=== PATIENT | male | born 1935 | race Caucasian/White ===

== ENCOUNTER → 2017-12-24 08:05 | Outpatient (CLI) | payer MEDICARE, BC, SELFPAY ==
[2017-12-24 08:53] LABS: Hemoglobin A1C% w Est Avg Glu 5.6 % (4.0-6.0)
[2017-12-24 09:45] LABS: Alanine Aminotransferase 26 IU/L (21-72); Aspartate Aminotransferase 22 IU/L (17-59); BUN Creatinine Ratio 19.2 (6-22); Blood Urea Nitrogen 25 mg/dL (9-20); Calcium 9.9 mg/dL (8.4-10.2); Carbon Dioxide 28 mmol/L (22-32); Chloride 105 mmol/L (98-107); Cholesterol 166 mg/dL (140-199); Estimated Glomerular Filt Rate 52.9 mL/min (>60); Glucose 124 mg/dL (80-110); HDL Cholesterol 51 mg/dL (40-60); HEMOLYSIS < 15 (0-50); LDL Cholesterol Calculated 97 mg/dL (<100); Potassium 4.9 mmol/L (3.4-5.1); Sodium 142 mmol/L (137-145); Triglycerides 90 mg/dL (35-150)
== END ==
PROVIDERS: PCP Internal Medicine; Visit Provider Internal Medicine
DX: I10 Essential (primary) hypertension (principal); E11.40 Type 2 diabetes mellitus with diabetic neuropathy, unspecified; E78.5 Hyperlipidemia, unspecified
CPT/HCPCS: 36415; 80048; 80061; 83036; 84450; 84460

== ENCOUNTER → 2018-07-23 09:48 | Outpatient (CLI) | payer MEDICARE, BC, SELFPAY ==
[2018-07-23 11:13] LABS: Hemoglobin A1C% w Est Avg Glu 5.7 % (4.0-6.0)
[2018-07-23 11:18] LABS: Alanine Aminotransferase 31 IU/L (21-72); Aspartate Aminotransferase 24 IU/L (17-59); Cholesterol 133 mg/dL (140-199); HDL Cholesterol 42 mg/dL (40-60); LDL Cholesterol Calculated 74 mg/dL (<100); Triglycerides 84 mg/dL (35-150)
[2018-07-23 12:39] LABS: BUN Creatinine Ratio 20.9 (6-22); Blood Urea Nitrogen 23 mg/dL (9-20); Calcium 9.5 mg/dL (8.4-10.2); Carbon Dioxide 21 mmol/L (22-32); Chloride 106 mmol/L (98-107); Estimated Glomerular Filt Rate > 60.0 mL/min (>60); Glucose 124 mg/dL (80-110); HEMOLYSIS < 15 (0-50); Potassium 4.2 mmol/L (3.4-5.1); Sodium 140 mmol/L (137-145)
[2018-07-23 15:27] LABS: Creatinine Urine Random 184.1 mg/dL
[2018-07-23 15:31] LABS: Microalbumi Creatinin Ratio Ur 6.5 ug/mg CR (<30); Microalbumin Urine Random 1.2 mg/dL (0-1.6)
[2018-07-24 16:13] LABS: PSA, Total < 0.1 ng/mL (< 4.1)
== END ==
PROVIDERS: PCP Internal Medicine; Visit Provider Internal Medicine
DX: E11.9 Type 2 diabetes mellitus without complications (principal); I10 Essential (primary) hypertension; E78.5 Hyperlipidemia, unspecified; Z85.46 Personal history of malignant neoplasm of prostate
CPT/HCPCS: 36415; 80048; 80061; 82043; 82570; 83036; 84153; 84154; 84450; 84460

== ENCOUNTER → 2019-04-12 09:45 | Outpatient (CLI) | payer MEDICARE, BC, SELFPAY ==
[2019-04-12 11:17] LABS: Alanine Aminotransferase 25 IU/L (<50); Albumin 4.5 g/dL (3.5-5.0); Albumin Globulin Ratio 1.7 (1.0-2.8); Alkaline Phosphatase 61 U/L (38-126); Aspartate Aminotransferase 26 IU/L (17-59); BUN Creatinine Ratio 18.3 (6-22); Bilirubin Total 0.7 mg/dL (0.2-1.3); Blood Urea Nitrogen 22 mg/dL (9-20); Calcium 9.4 mg/dL (8.4-10.2); Carbon Dioxide 24 mmol/L (22-32); Chloride 107 mmol/L (98-107); Cholesterol 134 mg/dL (140-199); Estimated Glomerular Filt Rate 57.8 mL/min (>60); Globulin 2.7 g/dL (1.7-4.1); Glucose 132 mg/dL (80-110); HDL Cholesterol 44 mg/dL (40-60); HEMOLYSIS < 15 (0-50); LDL Cholesterol Calculated 71 mg/dL (<100); Potassium 4.2 mmol/L (3.4-5.1); Sodium 142 mmol/L (137-145); Total Protein 7.2 g/dL (6.3-8.2); Triglycerides 97 mg/dL (35-150)
== END ==
PROVIDERS: PCP Internal Medicine; Visit Provider Internal Medicine
DX: I10 Essential (primary) hypertension (principal); E78.5 Hyperlipidemia, unspecified
CPT/HCPCS: 36415; 80053; 80061

== ENCOUNTER → 2020-02-28 13:40 | Outpatient (CLI) | payer MEDICARE, BC, SELFPAY ==
--- NOTE | 2020-02-28 | DI.RAD.S_ITS ---
PROCEDURE: XR HAND LT MIN 3V INDICATIONS: LEFT HAND PAIN AFTER FALL TECHNIQUE: 3 views of the hand(s) acquired. COMPARISON: None. FINDINGS: Bones: No fractures or dislocations. Carpal bones are normally aligned. No suspicious bony lesions. Mild degenerative osteoarthritis. Soft tissues: No suspicious soft tissue calcifications. IMPRESSION: Mild degenerative osteoarthritic joint space narrowing, best seen at the base of the 1st metacarpal as it articulates against the trapezium but there is no acute trauma found. Dictated by: Geronimo Bunn M.D. on 02/28/2020 at 14:43 Approved by: Geronimo Bunn M.D. on 02/28/2020 at 14:44
== END ==
PROVIDERS: PCP Student in an Organized Health Care Education/Training Program; Referring Provider Student in an Organized Health Care Education/Training Program; Visit Provider Student in an Organized Health Care Education/Training Program
DX: M79.642 Pain in left hand (principal); M19.042 Primary osteoarthritis, left hand
CPT/HCPCS: 73130

== ENCOUNTER → 2020-08-30 11:50 | Outpatient (CLI) | payer MEDICARE, BC, SELFPAY ==
--- NOTE | 2020-08-30 11:56 | DI.RAD.S_ITS ---
PROCEDURE: XR CHEST 2V INDICATIONS: DYSPNEA TECHNIQUE: 2 views of the chest were acquired. COMPARISON: [facility], CHEST 1 VIEW, 03/25/2017, 12:19. [facility], CHEST 2 VIEW, 04/24/2009, 10:49. FINDINGS: Surgical changes and devices: None. Lungs and pleura: Lungs are mildly abnormal with a mild interstitial prominence, likely unchanged considering slight differences in technique from the comparison plain films. No pleural effusions or pneumothorax. Mediastinum: Mediastinal contours are normal. Heart size is normal. Bones and chest wall: No suspicious bony abnormalities. Soft tissues appear unremarkable. IMPRESSION: Mild chronic interstitial prominence, no definite acute disease. The film technique is significantly emergency department manager, and the interstitial prominence appears appreciably more easily visualized. This is considered most likely a artifact of technique but if unusual symptoms and progression of symptoms develops than high-resolution noncontrast CT scanning of the lung parenchyma may become necessary. Dictated by: Geronimo Bunn M.D. on 08/30/2020 at 13:09 Approved by: Geronimo Bunn M.D. on 08/30/2020 at 13:11
== END ==
PROVIDERS: PCP Student in an Organized Health Care Education/Training Program; Referring Provider Student in an Organized Health Care Education/Training Program; Visit Provider Student in an Organized Health Care Education/Training Program
DX: R06.00 Dyspnea, unspecified (principal)
CPT/HCPCS: 71046

== ENCOUNTER → 2020-09-05 14:14 | Outpatient (ROUT) | payer MEDICARE, BC, SELFPAY ==
[2020-09-05 14:35] LABS: D Dimer 250 ng/mL (<230)
== END ==
PROVIDERS: PCP Student in an Organized Health Care Education/Training Program; Visit Provider Student in an Organized Health Care Education/Training Program
DX: R06.00 Dyspnea, unspecified (principal)
CPT/HCPCS: 85379

== ENCOUNTER → 2020-09-06 12:34 | Outpatient (CLI) | payer MEDICARE, BC, SELFPAY ==
--- NOTE | 2020-09-06 | DI.CT.S_ITS ---
PROCEDURE: CT ANGIO CHEST PE PROTOCOL INDICATIONS: Dyspnea, unspecified TECHNIQUE: After the administration of intravenous contrast, 2 mm thick sections acquired from the pulmonary apices to the posterior costophrenic angles. 3-dimensional maximum intensity projection (MIP) coronal and sagittal reformats were then acquired through the thorax. For radiation dose reduction, the following was used: automated exposure control, adjustment of mA and/or kV according to patient size. COMPARISON: None. FINDINGS: Lungs: Scattered subsegmental atelectasis and/or scarring. No focal consolidation. Diffuse bronchiectasis. Subpleural reticular opacities, although nodular appearing focus seen in the left upper lobe on image 130/5 is technically indeterminate and cannot exclude early malignant or metastatic process. This measures approximately 1.5 x 0.6 cm . Mild calcified pleural plaques Pleura: No pleural effusion or pneumothorax. Heart: Heart size is normal. No pericardial effusion. Chest nodes: Enlarged right hilar lymph node seen on image 71/4, 2.0 x 1.8 cm. Shotty right paratracheal and subcarinal lymph nodes also noted. Thyroid gland: Negative Aorta: Normal. Pulmonary arteries: Normal. No intraluminal filling defects. Esophagus: Small hiatal hernia. Upper abdomen: No significant findings. Bones: Spondylitic changes and facet arthropathy. IMPRESSION: No evidence of pulmonary embolism. No aortic dissection identified. Ill-defined nodular opacity within the left upper lobe. Recommend follow-up with noncontrast CT chest in 3 months as early metastatic or malignant process cannot be excluded. Scant calcified pleural plaques raising possibility of suppresses related pleural disease. Right hilar lymphadenopathy, technically nonspecific finding recommend clinical correlation. Diffuse scarring and interstitial disease, including widespread bronchiectasis. Additional chronic/incidental findings as above. Dictated by: Rahul Moreno M.D. on 09/06/2020 at 13:57 Approved by: Rahul Moreno M.D. on 09/06/2020 at 14:03
== END ==
PROVIDERS: PCP Student in an Organized Health Care Education/Training Program; Referring Provider Student in an Organized Health Care Education/Training Program; Visit Provider Student in an Organized Health Care Education/Training Program
DX: R06.00 Dyspnea, unspecified (principal)
CPT/HCPCS: 71275; Q9967

== ENCOUNTER → 2020-09-26 09:01 | Outpatient (CLI) | payer MEDICARE, BC, SELFPAY ==
--- NOTE | 2020-09-26 09:03 | DI.ECHO.S_ITS ---
[place] [facility]---------+ [facility] +---------+ : : [address] : : : : [id number] : : : : Phone: [phone] Echocardiogram Report + + :Name: FEMI REED Study Date: 09/26/2020 Height: 69 in : :[facility] ReadingLocation: Weight: 200 lb : : Gender: Male BSA: 2.1 m2 : :: 1935 Age: 85 yrs BP: 155/89 mmHg: :Reason For Study: DYSPNEA : :Ordering Physician: [place], : :RADHA Performed By: Samantha Houser : :Referring: RADHA GARIBAY : + + Interpretation Summary 1) Normal left ventricular thickness, size, and systolic function (EF 55-60%). 2) There are no obvious focal wall motion abnormalities noted but poor endocardial definition reduces the sensitivity for the detection of such. 3) Normal right ventricular size and function. 4) No significant valvular abnormalities. 5) The right ventricular systolic pressure is estimated to be at least 26 mmHg based on an estimated right atrial pressure of 8 mm Hg. 6) Hypertension present during the study (BP 15/89mmHg). 7) Compared to the Echo done 03/26/2017, no significant change in cardiac structure. Procedure: A two-dimensional transthoracic echocardiogram with color flow and Doppler was performed. The study quality was technically adequate. Comparison is made with the echocardiogram of 03/26/2017. The patient was in sinus rhythm with heart rates between 73-89 bpm during the exam. Left Ventricle: The left ventricle is normal in size and wall thickness. The ejection fraction is estimated to be 55-60%. There are no obvious focal wall motion abnormalities noted but poor endocardial definition reduces the sensitivity for the detection of such. Right Ventricle: The right ventricle is normal in size and function. Atria: Both atria are normal in size. There is no Doppler evidence for an interatrial shunt. Mitral Valve: The mitral valve is normal in structure and function. There is no mitral regurgitation noted. Aortic Valve: The aortic valve is slightly calcified. The aortic valve opens well. There is discrete nodular thickening of the non- coronary cusp. There is no aortic valve stenosis. No aortic regurgitation is present. Tricuspid Valve: The tricuspid valve is normal in structure and function. The right ventricular systolic pressure is estimated to be at least 26 mmHg based on an estimated right atrial pressure of 8 mm Hg. There is mild tricuspid regurgitation. Pulmonic Valve: The pulmonic valve leaflets are thin and pliable; valve motion is normal. There is no pulmonic valvular regurgitation. Great Vessels: The aortic root is normal size. The ascending aorta is at the upper limits of normal in size. The IVC is of normal diameter and collapses less than 50% with a sniff. This suggests a right atrial pressure of 8 mm Hg. Pericardium/ Pleura There is no pericardial effusion. There is no pleural effusion. MMode/2D Measurements & Calculations LVIDd: 4.2 cm LVOT diam: 2.2 cm LVIDs: 3.0 cm asc Aorta Diam: 3.9 cm FS: 28.7 % IVSd: 1.0 cm LVPWd: 0.83 cm LV palmer. diameter/BSA (cm/m^2): 2.1 LV sys. diameter/BSA (cm/m^2): 1.5 LA A2 area: 18.1 cm2 RA long axis: 4.8 cm LA A4 area: 13.4 cm2 RA area: 13.7 cm2 LA length (vol): 5.2 cm RA vol: 33.5 ml LA vol: 39.9 ml RA : 16.2 ml/m2 LA vol index: 19.3 ml/m2 IVC diam: 1.4 cm RVD1 (basal): 3.6 cm TAPSE: 1.9 cm Doppler Measurements & Calculations Ao V2 max: 143.9 cm/sec LVOT Max Abisai: 79.7 cm/sec Ao V2 mean: 97.4 cm/sec LV V1 max P.5 mmHg Ao max P.3 mmHg LV V1 VTI: 16.1 cm Ao mean P.5 mmHg DENZEL(I,D): 2.2 cm2 Ao V2 VTI: 28.9 cm DENZEL(V,D): 2.2 cm2 sev ratio: 0.56 DENZEL indexed to BSA (cm^2/m^2): 1.1 MV E max abisai: 40.0 cm/sec TR max abisai: 213.2 cm/sec MV A max abisai: 82.3 cm/sec TR max P.2 mmHg MV E/A: 0.49 PA V2 max: 80.3 cm/sec Med Peak E' Abisai: 4.7 cm/sec PA V2 mean: 51.1 cm/sec E/E' med: 8.5 PA mean P.3 mmHg Lat Peak E' Abisai: 6.0 cm/sec PA pr(Accel): 39.6 mmHg E/E' lat: 6.7 E/e' average: 7.6 MV dec time: 0.32 sec SV(OT): 63.6 ml Reading Physician:01:57 PM
== END ==
PROVIDERS: PCP Student in an Organized Health Care Education/Training Program; Referring Provider Student in an Organized Health Care Education/Training Program; Visit Provider Student in an Organized Health Care Education/Training Program
DX: I07.1 Rheumatic tricuspid insufficiency (principal); R06.00 Dyspnea, unspecified
CPT/HCPCS: 93306

== ENCOUNTER → 2020-11-19 10:16 | Outpatient (CLI) | payer MEDICARE, BC, SELFPAY ==
[2020-11-19 14:00] LABS: C-Reactive Protein Quant < 0.5 mg/dL (<1.0)
[2020-11-19 14:01] LABS: Erythrocyte Sedimentation Rate 10 MM/HR (0-15)
[2020-11-19 14:02] LABS: Rheumatoid Factor < 8.6 IU/mL (<12.0)
[2020-11-20 03:48] LABS: Complement C3 124 mg/dL (82-167)
[2020-11-21 16:44] LABS: Cytoplasmic C-ANCA <1:20 titer (Neg:<1:20); Perinuclear P-ANCA <1:20 titer (Neg:<1:20)
[2020-11-22 04:54] LABS: Complement Total CH50 > 60 U/mL (>41)
== END ==
PROVIDERS: PCP Student in an Organized Health Care Education/Training Program; Referring Provider Internal Medicine Critical Care Medicine; Visit Provider Internal Medicine Critical Care Medicine
DX: J84.9 Interstitial pulmonary disease, unspecified (principal)
CPT/HCPCS: 36415; 85651; 86140; 86160; 86162; 86256; 86430

== ENCOUNTER → 2020-12-07 09:55 | Outpatient (CLI) | payer MEDICARE, BC, SELFPAY ==
--- NOTE | 2020-12-07 | DI.CT.S_ITS ---
PROCEDURE: CT CHEST WO CON INDICATIONS: Other nonspecific abnormal finding of lung field TECHNIQUE: Noncontrast 2.0-2.5 mm thick sections acquired from the pulmonary apices to the posterior costophrenic angles. 7 mm thick axial MIP and 5 mm coronal and sagittal reformats were then acquired. A low radiation dose technique was utilized. COMPARISON: [facility], CT, CT ANGIO CHEST PE PROTOCOL, 09/06/2020, 12:48. FINDINGS: Image quality: Diagnostic, given the low radiation dose technique. Lungs and pleura: Chronic lung disease is present, with a predominantly peripheral mild pulmonary fibrotic pattern, and a lesser degree of alveolar prominence than on the comparison study 09/06/20. At the left upper lobe an area of subsolid airspace disease has improved, with mild residual scarring. This is currently best seen on series 3, image 111, and had been identified on the comparison study from 09/06/28 on series 5, image 130. Mediastinum: Heart size is normal. No pericardial effusion. No mediastinal adenopathy by size criteria. Thoracic aorta and central pulmonary arteries are normal in size. Esophagus is normal in caliber. No hiatal hernia. Bones and chest wall: No suspicious bony lesions. No vertebral body compression fractures. No axillary or supraclavicular adenopathy by size criteria. Thyroid gland appears normal where well seen. . Abdomen: Visualized upper abdomen solid organs and bowel loops appear normal in the absence of contrast. 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 An area of focally more prominent airspace disease have been present within the left upper lobe, subsolid, and improving on the current study with mild residual scarring. This presumably was secondary to an inflammatory process in area at that time Dictated by: Geronimo Bunn M.D. on 12/07/2020 at 14:10 Approved by: Geronimo Bunn M.D. on 12/07/2020 at 14:29
== END ==
PROVIDERS: PCP Student in an Organized Health Care Education/Training Program; Referring Provider Student in an Organized Health Care Education/Training Program; Visit Provider Student in an Organized Health Care Education/Training Program
DX: R91.8 Other nonspecific abnormal finding of lung field (principal); J98.4 Other disorders of lung; J84.10 Pulmonary fibrosis, unspecified
CPT/HCPCS: 71250

== ENCOUNTER → 2021-01-17 12:08 | Outpatient (CLI) | payer MEDICARE, BC, SELFPAY ==
[2021-01-17 13:19] LABS: BUN Creatinine Ratio 18.1 (6-22); Blood Urea Nitrogen 21 mg/dL (9-20); Calcium 9.9 mg/dL (8.4-10.2); Carbon Dioxide 24 mmol/L (22-32); Chloride 103 mmol/L (98-107); Estimated Glomerular Filt Rate 59.8 mL/min (>60); Glucose 348 mg/dL (80-110); HEMOLYSIS < 15 (0-50); Potassium 4.7 mmol/L (3.4-5.1); Sodium 136 mmol/L (137-145)
== END ==
PROVIDERS: PCP Student in an Organized Health Care Education/Training Program; Referring Provider Student in an Organized Health Care Education/Training Program; Visit Provider Student in an Organized Health Care Education/Training Program
DX: I10 Essential (primary) hypertension (principal)
CPT/HCPCS: 36415; 80048

== ENCOUNTER → 2021-01-28 14:09 | Outpatient (CLI) | payer MEDICARE, BC, SELFPAY ==
[2021-01-28 15:24] LABS: Hemoglobin A1C% w Est Avg Glu 8.5 % (4.0-6.0)
== END ==
PROVIDERS: PCP Student in an Organized Health Care Education/Training Program; Referring Provider Student in an Organized Health Care Education/Training Program; Visit Provider Student in an Organized Health Care Education/Training Program
DX: E11.9 Type 2 diabetes mellitus without complications (principal)
CPT/HCPCS: 36415; 83036

== ENCOUNTER → 2021-06-07 11:01 | Outpatient (CLI) | payer MEDICARE, BC, SELFPAY ==
[2021-06-07 12:38] LABS: Hemoglobin A1C% w Est Avg Glu 9.1 % (4.0-6.0)
== END ==
PROVIDERS: PCP Student in an Organized Health Care Education/Training Program; Referring Provider Student in an Organized Health Care Education/Training Program; Visit Provider Student in an Organized Health Care Education/Training Program
DX: E11.9 Type 2 diabetes mellitus without complications (principal)
CPT/HCPCS: 36415; 83036

== ENCOUNTER → 2021-08-12 10:11 | Outpatient (CLI) | payer MEDICARE, BC, SELFPAY ==
[2021-08-12 12:31] LABS: COVID-19 CEPHEID PCR (VTM/NP) Negative (Negative)
== END ==
PROVIDERS: PCP Student in an Organized Health Care Education/Training Program; Visit Provider Family Medicine Sleep Medicine
DX: Z20.822 Contact with and (suspected) exposure to COVID-19 (principal)
CPT/HCPCS: C9803; U0003; U0005

== ENCOUNTER → 2021-09-05 11:17 | Outpatient (CLI) | payer MEDICARE, BC, SELFPAY ==
[2021-09-05 12:16] LABS: Add Manual Diff / Slide Review NO; Basophils Absolute Auto 0 /uL (0-100); Basophils Percent Auto 0.5 % (0-2); Eosinophils Absolute Auto 100 /uL (0-450); Hematocrit 39.7 % (41-53); Hemoglobin 13.6 g/dL (13.5-17.5); Lymphocytes Absolute Auto 2000 /uL (1100-4500); Lymphocytes Percent Auto 28.7 % (25-40); Mean Corpuscular HGB Conc 34.2 % (30-36); Mean Corpuscular Hemoglobin 32.1 PG (26-34); Mean Corpuscular Volume 93.9 fL (80-100); Monocytes Absolute Auto 500 /uL (0-900); Monocytes Percent Auto 7.8 % (3-14); Neutrophils Absolute Auto 4200 /uL (1500-7000); Platelet Count 172 X10^3/uL (150-400); Red Blood Cell Count 4.23 X10^6/uL (4.5-5.9); Red Cell Distribution Width 13.1 % (11.6-14.8); White Blood Cell Count 6.8 X10^3/uL (4.5-11.0)
[2021-09-05 12:42] LABS: Alanine Aminotransferase 27 IU/L (<50); Albumin 4.5 g/dL (3.5-5.0); Albumin Globulin Ratio 1.7 (1.0-2.8); Alkaline Phosphatase 66 U/L (38-126); Aspartate Aminotransferase 24 IU/L (17-59); BUN Creatinine Ratio 16.8 (6-22); Bilirubin Total 0.7 mg/dL (0.2-1.3); Blood Urea Nitrogen 19 mg/dL (9-20); Calcium 9.6 mg/dL (8.4-10.2); Carbon Dioxide 24 mmol/L (22-32); Chloride 105 mmol/L (98-107); Cholesterol 174 mg/dL (140-199); Estimated Glomerular Filt Rate > 60 mL/min (>60); Globulin 2.7 g/dL (1.7-4.1); Glucose 298 mg/dL (80-110); HDL Cholesterol 45 mg/dL (40-60); HEMOLYSIS < 15 (0-50); Hemoglobin A1C% w Est Avg Glu 9.8 % (4.0-6.0); LDL Cholesterol Calculated 96 mg/dL (<100); Potassium 4.5 mmol/L (3.4-5.1); Sodium 138 mmol/L (137-145); Total Protein 7.2 g/dL (6.3-8.2); Triglycerides 165 mg/dL (35-150)
[2021-09-05 13:09] LABS: Thyroid Stimulating Hormone 1.88 uIU/mL (0.47-4.68)
[2021-09-05 13:29] LABS: Prostate Specific Antigen Scrn < 0.064 ng/mL (0.1-4.0)
== END ==
PROVIDERS: PCP Family Medicine; Referring Provider Student in an Organized Health Care Education/Training Program; Visit Provider Student in an Organized Health Care Education/Training Program
DX: E11.9 Type 2 diabetes mellitus without complications (principal); E78.5 Hyperlipidemia, unspecified; I10 Essential (primary) hypertension; Z12.5 Encounter for screening for malignant neoplasm of prostate
CPT/HCPCS: 36415; 80053; 80061; 83036; 84443; 85025; G0103

== ENCOUNTER → 2021-11-15 14:51 | Outpatient (CLI) | payer MEDICARE, BC, SELFPAY ==
[2021-11-15 16:17] LABS: Creatinine Urine Random 207.1 mg/dL
[2021-11-15 16:21] LABS: Microalbumi Creatinin Ratio Ur 21.2 ug/mg CR (<30); Microalbumin Urine Random 4.4 mg/dL (0-1.6)
[2021-11-15 23:11] LABS: Hemoglobin A1C% w Est Avg Glu 9.1 % (4.0-6.0)
== END ==
PROVIDERS: PCP Family Medicine; Referring Provider Internal Medicine; Visit Provider Internal Medicine
DX: E11.9 Type 2 diabetes mellitus without complications (principal)
CPT/HCPCS: 36415; 82043; 82570; 83036

== ENCOUNTER 2022-05-16 20:28 | Inpatient (IN) | payer MEDICARE, BC, SELFPAY ==
[2022-05-16] VITALS (11 sets, daily range): BP systolic 160–184; BP diastolic 78–86; PULSE 90–102; RESP 22–34; TEMP 37.7–37.9; O2SAT 94–98
--- NOTE | 2022-05-16 20:49 | DI.RAD.S_ITS ---
PROCEDURE: XR CHEST 1V INDICATIONS: Eval for pneumonia TECHNIQUE: One view of the chest was acquired. COMPARISON: [facility], CR, XR CHEST 2V, 08/30/2020, 11:54. FINDINGS: Surgical changes and devices: None. Lungs and pleura: There are new confluent left basilar opacities. No pleural effusions or pneumothorax. Mediastinum: Mediastinal contours appear normal. Heart size is normal. Bones and chest wall: No suspicious bony lesions. Overlying soft tissues appear unremarkable. IMPRESSION: 1. New confluent left basilar opacities suspicious for consolidation secondary to pneumonia given clinical history. Dictated by: Juventino Hernandes M.D. on 05/16/2022 at 21:58 Approved by: Juventino Hernandes M.D. on 05/16/2022 at 22:01
--- NOTE | 2022-05-16 21:15 | ED_ITS ---
HPI - General Adult General Chief complaint: Fever Stated complaint: Multiple falls Time Seen by Provider: 05/16/22 20:34 Source: patient, family and EMS Mode of arrival: EMS Limitations: no limitations History of Present Illness HPI narrative: Patient is a 86-year-old male who comes to the emergency department today for 2 separate episodes of becoming lightheaded. He states that 1 of those episodes had several occasions when he was trying to urinate just after he urinated where he became very lightheaded. The 2nd episode only had 1 event of this. He denied chest pain or shortness of breath or dizziness prior to it. He is no chest pain. No shortness of breath. No abdominal pain. He thinks that it he is having some difficulty going to the bathroom and had 1 episode of urinary incontinence but that was because he could not make it to the bathroom however no specific dysuria. No change in bowel habits. No rashes. Denies any fevers. States he is eating and drinking without much issue. He is having chills. Was febrile by EMS prior to arrival. Related Data Home Medications Medication Instructions Recorded Confirmed metformin 500 mg tablet,extended 500 mg PO BID ##0 03/25/17 release 24 hr (Glucophage XR) Previous Rx's Medication Instructions Recorded aspirin 81 mg tablet,delayed 81 mg PO QDAY #30 tabs 03/26/17 release atorvastatin 20 mg tablet (Lipitor) 40 mg PO HS #30 tabs 03/26/17 lisinopril 10 mg tablet 10 mg PO QDAY #30 tabs 03/26/17 Allergies Allergy/AdvReac Type Severity Reaction Status Date / Time No Known Drug Allergies Allergy Verified 05/16/22 20:49 Review of Systems Review of Systems ROS Unobtainable: All systems reviewed & are unremarkable except as noted in HPI and below Patient History Medical History CVA (cerebral vascular accident) Diabetes H/O prostate cancer Surgical History (Updated 11/04/17 @ 06:09 by Rakesh Figueroa MD) H/O abdominal prostatectomy Social History household members: spouse Smoking Status: Never smoker Smoking Status: Never smoker alcohol intake frequency: 0-2 drinks per day Substance Use Type: does not use Exam Initial Vital Signs Initial Vital Signs: Vital Signs Temperature 100.2 F H 05/16/22 20:30 Pulse Rate 102 H 05/16/22 20:30 Respiratory Rate 30 H 05/16/22 20:30 Blood Pressure 184/86 H 05/16/22 20:30 Pulse Oximetry 98 05/16/22 20:30 Oxygen Delivery Method 05/16/22 20:30 Const General: cooperative and comfortable HENMT Head: normal to inspection and normocephalic Resp Effort & Inspection: normal respiratory effort Auscultation: clear to auscultation bilaterally Cardio Rate: tachycardic Rhythm: regular rhythm GI Inspection: normal to inspection Skin General: no rashes or lesions noted Neuro General: patient alert, patient awake, patient oriented x3 and moves all extremities Extrem General: capillary refill normal Psych Appearance: grossly normal Scores GCS Herlinda coma scale eye opening: Spontaneous Warren coma scale verbal response: Orientated Herlinda coma scale motor response: Obey commands Warren coma scale total score: 15 Course Orders Ordered: ED Orders 05/16/22 20:34 Covid-19 + FLU A/B + RSV - PCR Stat 05/16/22 20:49 XR chest 1V Stat Urinalysis and Microscopic Stat Urine Culture Stat EKG-12 Lead Stat 05/16/22 21:39 Blood Culture Stat Complete Blood Count AUTO DIFF Stat Comprehensive Metabolic Panel Stat Ethanol (ETOH) Stat Lactate (Lactic Acid) Stat Lipase Stat Magnesium Stat Procalcitonin Stat Troponin & CK Cardiac Panel Stat Acetaminophen (Acetaminophen 325 Mg Tablet) 650 mg PO Q6H [facility] Last Admin: 05/17/22 01:10 Dose: 650 mg Documented By: OW Aspirin (Aspirin Ec 81 Mg Tablet) 81 mg PO DAILY [facility] Last Admin: 05/17/22 01:10 Dose: 81 mg Documented By: OW Atorvastatin Calcium (Atorvastatin 20 Mg Tablet) 40 mg PO BEDTIME [facility] Last Admin: 05/17/22 01:10 Dose: 40 mg Documented By: OW Dextrose (Dextrose 50 % In Water 25 Gm/50 Ml Syringe) 25 gm IV PRN PRN PRN Reason: Hypoglycemia Enoxaparin Sodium (Enoxaparin 40 Mg/0.4 Ml Syringe) 40 mg SUBCUT DAILY [facility] Ceftriaxone Sodium 1,000 mg/ (Sodium Chloride) 100 mls @ 200 mls/hr IV Q24H [facility] Stop: 05/22/22 21:59 Azithromycin 500 mg/ Dextrose 250 mls @ 250 mls/hr IV Q24H [facility] Stop: 05/20/22 22:59 Insulin Human Lispro (Insulin Lispro 100 Unit/Ml 3ml Vial) 0 unit SUBCUT [facility]; Protocol Lisinopril (Lisinopril 10 Mg Tablet) 10 mg PO DAILY [facility] Last Admin: 05/17/22 01:11 Dose: 10 mg Documented By: ANA MARÍA Naloxone HCl (Naloxone 0.4 Mg/Ml Vial) 0.2 mg IV Q2MIN PRN PRN Reason: Opiate Reversal Ondansetron HCl (Ondansetron 4 Mg Odt) 4 mg PO Q8HR PRN PRN Reason: Nausea And Vomiting Discontinued Medications Sodium Chloride (Normal Saline 0.9%) 1,000 mls @ 125 mls/hr IV CONT [facility] Last Admin: 05/16/22 21:45 Dose: 125 mls/hr Documented By: FREDERICK Ceftriaxone Sodium 1,000 mg/ (Sodium Chloride) 100 mls @ 200 mls/hr IV NOW ONE Stop: 05/16/22 21:12 Last Infusion: 05/16/22 22:32 Dose: 0 mls/hr Documented By: Admin: 05/16/22 21:52 Dose: 200 mls/hr Documented By: FREDERICK Azithromycin 500 mg/ Dextrose 250 mls @ 250 mls/hr IV NOW ONE Stop: 05/16/22 22:26 Last Admin: 05/16/22 22:37 Dose: 250 mls/hr Documented By: FREDERICK Vital Signs Vital signs: Vital Signs - 8 hr 05/16/22 20:30 05/16/22 20:47 05/16/22 21:00 Temperature 100.2 F H Pulse Rate 102 H 98 H 95 H Respiratory Rate 30 H 28 H 30 H Blood Pressure 184/86 H Pulse Oximetry 98 96 95 Oxygen Delivery Method Room Air 05/16/22 21:15 05/16/22 21:30 05/16/22 21:43 Temperature Pulse Rate 96 H 95 H Respiratory Rate 27 H 25 H Blood Pressure 168/81 H Pulse Oximetry 95 95 Oxygen Delivery Method 05/16/22 21:43 05/16/22 21:45 05/16/22 22:00 Temperature Pulse Rate 94 H 93 H Respiratory Rate 34 H 28 H Blood Pressure 163/78 H Pulse Oximetry 96 95 Oxygen Delivery Method 05/16/22 22:00 05/16/22 22:15 05/16/22 22:30 Temperature Pulse Rate 91 H 93 H Respiratory Rate 31 H 25 H Blood Pressure 175/79 H Pulse Oximetry 95 95 Oxygen Delivery Method 05/16/22 22:30 Temperature Pulse Rate 91 H Respiratory Rate 25 H Blood Pressure Pulse Oximetry 94 Oxygen Delivery Method Room Air Medical Decision Making Lab Data Lab results reviewed: Yes I reviewed the patient's lab results. Result diagrams: 05/16/22 21:39 05/16/22 21:39 Labs: Lab Results 05/16/22 05/16/22 05/16/22 Range/Units 20:34 21:39 21:39 WBC 10.2 (4.5-11.0) X10^3/uL RBC 4.09 L (4.5-5.9) X10^6/uL Hgb 13.2 L (13.5-17.5) g/dL Hct 38.7 L (41-53) % MCV 94.6 (80-100) fL MCH 32.2 (26-34) PG MCHC 34.1 (30-36) % RDW 13.2 (11.6-14.8) % Plt Count 163 (150-400) X10^3/uL Neut % (Auto) 83.3 H (50-75) % Lymph % (Auto) 8.6 L (25-40) % Cross % (Auto) 7.5 (3-14) % Eos % (Auto) 0.3 L (2-4) % Baso % (Auto) 0.3 (0-2) % Neut # (Auto) 8500 H (7557-7182) /uL Lymph # (Auto) 900 L (4297-2827) /uL Cross # (Auto) 800 (0-900) /uL Eos # (Auto) 0 (0-450) /uL Baso # (Auto) 0 (0-100) /uL Sodium 138 (137-145) mmol/L Potassium 4.3 (3.4-5.1) mmol/L Chloride 101 (98-107) mmol/L Carbon Dioxide 27 (22-32) mmol/L BUN 14 (9-20) mg/dL Creatinine 1.11 (0.66-1.25) mg/dL Estimated GFR > 60 (>60) mL/min BUN/Creatinine Ratio 12.6 (6-22) Glucose 221 H (80-110) mg/dL Lactate (0.7-2.1) mmol/L Calcium 9.0 (8.4-10.2) mg/dL Magnesium (1.6-2.3) mg/dL Total Bilirubin 1.1 (0.2-1.3) mg/dL AST 23 (17-59) IU/L ALT 24 (<50) IU/L Alkaline Phosphatase 75 (38-126) U/L Total Creatine Kinase (55-170) U/L CK-MB (CK-2) (<2.37) ng/mL CK-MB (CK-2) Rel Index (1.5-5.0) % Troponin I (0.01-0.034) ng/mL Total Protein 7.2 (6.3-8.2) g/dL Albumin 4.1 (3.5-5.0) g/dL Globulin 3.1 (1.7-4.1) g/dL Albumin/Globulin Ratio 1.3 (1.0-2.8) Lipase (23-300) U/L Procalcitonin (<0.5) ng/mL Ethyl Alcohol ( - 10) mg/dL SARS-CoV-2 (PCR) Positive H (Negative) Influenza A (RT-PCR) Flu a negative (NEGATIVE) Influenza B (RT-PCR) Flu b negative (NEGATIVE) RSV (PCR) Negative (Negative) 05/16/22 05/16/22 Range/Units 21:39 21:39 WBC (4.5-11.0) X10^3/uL RBC (4.5-5.9) X10^6/uL Hgb (13.5-17.5) g/dL Hct (41-53) % MCV (80-100) fL MCH (26-34) PG MCHC (30-36) % RDW (11.6-14.8) % Plt Count (150-400) X10^3/uL Neut % (Auto) (50-75) % Lymph % (Auto) (25-40) % Cross % (Auto) (3-14) % Eos % (Auto) (2-4) % Baso % (Auto) (0-2) % Neut # (Auto) (5470-1948) /uL Lymph # (Auto) (1105-6361) /uL Cross # (Auto) (0-900) /uL Eos # (Auto) (0-450) /uL Baso # (Auto) (0-100) /uL Sodium (137-145) mmol/L Potassium (3.4-5.1) mmol/L Chloride (98-107) mmol/L Carbon Dioxide (22-32) mmol/L BUN (9-20) mg/dL Creatinine (0.66-1.25) mg/dL Estimated GFR (>60) mL/min BUN/Creatinine Ratio (6-22) Glucose (80-110) mg/dL Lactate 1.5 (0.7-2.1) mmol/L Calcium (8.4-10.2) mg/dL Magnesium 1.6 (1.6-2.3) mg/dL Total Bilirubin (0.2-1.3) mg/dL AST (17-59) IU/L ALT (<50) IU/L Alkaline Phosphatase (38-126) U/L Total Creatine Kinase 140 (55-170) U/L CK-MB (CK-2) 1.48 (<2.37) ng/mL CK-MB (CK-2) Rel Index 1.1 L (1.5-5.0) % Troponin I 0.037 H (0.01-0.034) ng/mL Total Protein (6.3-8.2) g/dL Albumin (3.5-5.0) g/dL Globulin (1.7-4.1) g/dL Albumin/Globulin Ratio (1.0-2.8) Lipase 21 L (23-300) U/L Procalcitonin 0.06 (<0.5) ng/mL Ethyl Alcohol < 10 ( - 10) mg/dL SARS-CoV-2 (PCR) (Negative) Influenza A (RT-PCR) (NEGATIVE) Influenza B (RT-PCR) (NEGATIVE) RSV (PCR) (Negative) Imaging Data Chest x-ray: Radiologist's Impression: [address] [address] XRay Report Signed Patient: Jonathan Lancaster MR#: [id number] : 1935 Acct:[id number] Age/Sex: 86 / M Date of Service: 05/16/22 Loc: ED Accession Number: [id number] ?? Procedure: XR chest 1V Ordering Provider: Jonnathan Martell D.O. PROCEDURE:? XR CHEST 1V ? INDICATIONS:? Eval for pneumonia ? TECHNIQUE:? One view of the chest was acquired.? ? COMPARISON:? [facility], CR, XR CHEST 2V, 08/30/2020, 11:54. ? FINDINGS:? ? Surgical changes and devices:? None.? ? Lungs and pleura:? There are new confluent left basilar opacities.? No pleural effusions or pneumothorax.? ? Mediastinum:? Mediastinal contours appear normal.? Heart size is normal.? ? Bones and chest wall:? No suspicious bony lesions.? Overlying soft tissues appear unremarkable.? ? IMPRESSION:? ? 1. New confluent left basilar opacities suspicious for consolidation secondary to pneumonia given clinical history. ? ? Dictated by: Juventino Hernandes M.D. on 05/16/2022 at 21:58 ? ? Approved by: Juventino Hernandes M.D. on 05/16/2022 at 22:01 ECG Data Attestation: I personally reviewed and interpreted this ECG as follows: Interpretation: Sinus tachycardia Ventricular rate 102 Left axis deviation Normal QRS Normal QTC No ST T wave changes MDM Narrative Medical decision making narrative: Patient febrile and tachycardic upon arrival. He is nontoxic-appearing. He is alert oriented x3. Cultures were obtained. Chest x-ray looks like pneumonia and he is COVID positive however it is a focal pneumonia on the chest x-ray. He was given antibiotics for this. He is not having any production of sputum. He is having some issues that would make me think that he is urinary tract infection. He was unable to provide us any urine here in the ER. Fluids were started however he was not hypotensive and not altered and does not have an elevated lactate so we will hold on 30 cc/kilogram of fluids based on this. Given his age, presentation, COVID status, pneumonia, weakness patient does require admission to the hospital. Discussed the case with Dr. Moser who is on-call for the patient's primary doctor who will admit for further evaluation treatment. Discussed the need for admission with the patient and his at bedside. They both expressed understanding and agreement. Discharge Plan Departure Patient Disposition: Home Clinical Impression: COVID-19, Pneumonia, Weakness
[2022-05-16 21:43] LABS: Influenza A - CEPHEID Flu A NEGATIVE (NEGATIVE); Influenza B - CEPHEID Flu B NEGATIVE (NEGATIVE); Respiratory Syncytial Virus Negative (Negative)
[2022-05-16] MEDS: SODIUM CHLORIDE 0.9% 1,000 ML 125 ML IV (21:45)
[2022-05-16 21:51] LABS: Add Manual Diff / Slide Review NO; Basophils Absolute Auto 0 /uL (0-100); Basophils Percent Auto 0.3 % (0-2); Eosinophils Absolute Auto 0 /uL (0-450); Eosinophils Percent Auto 0.3 % (2-4); Hematocrit 38.7 % (41-53); Hemoglobin 13.2 g/dL (13.5-17.5); Lymphocytes Absolute Auto 900 /uL (1100-4500); Lymphocytes Percent Auto 8.6 % (25-40); Mean Corpuscular HGB Conc 34.1 % (30-36); Mean Corpuscular Hemoglobin 32.2 PG (26-34); Mean Corpuscular Volume 94.6 fL (80-100); Monocytes Absolute Auto 800 /uL (0-900); Monocytes Percent Auto 7.5 % (3-14); Neutrophils Absolute Auto 8500 /uL (1500-7000); Neutrophils Percent Auto 83.3 % (50-75); Platelet Count 163 X10^3/uL (150-400); Red Blood Cell Count 4.09 X10^6/uL (4.5-5.9); Red Cell Distribution Width 13.2 % (11.6-14.8); White Blood Cell Count 10.2 X10^3/uL (4.5-11.0)
[2022-05-16] MEDS: cefTRIAXone 1,000 MG in SODIUM CHLORIDE 0.9% 100 ML 200 MG IV (21:52)
[2022-05-16 21:59] LABS: Creatine Kinase 140 U/L (55-170); Lipase 21 U/L (23-300); Magnesium 1.6 mg/dL (1.6-2.3)
[2022-05-16 22:00] LABS: Lactate (Lactic Acid) 1.5 mmol/L (0.7-2.1)
[2022-05-16 22:01] LABS: Alanine Aminotransferase 24 IU/L (<50); Albumin 4.1 g/dL (3.5-5.0); Albumin Globulin Ratio 1.3 (1.0-2.8); Alkaline Phosphatase 75 U/L (38-126); Aspartate Aminotransferase 23 IU/L (17-59); BUN Creatinine Ratio 12.6 (6-22); Bilirubin Total 1.1 mg/dL (0.2-1.3); Blood Urea Nitrogen 14 mg/dL (9-20); Carbon Dioxide 27 mmol/L (22-32); Chloride 101 mmol/L (98-107); Estimated Glomerular Filt Rate > 60 mL/min (>60); Globulin 3.1 g/dL (1.7-4.1); Glucose 221 mg/dL (80-110); HEMOLYSIS 21 (0-50); Potassium 4.3 mmol/L (3.4-5.1); Sodium 138 mmol/L (137-145); Total Protein 7.2 g/dL (6.3-8.2)
[2022-05-16 22:13] LABS: COVID-19 CEPHEID 4-PLEX PCR POSITIVE (Negative)
[2022-05-16 22:13] LABS: Troponin I 0.037 ng/mL (0.01-0.034)
[2022-05-16 22:15] LABS: CKMB % Relative Index 1.1 % (1.5-5.0); Creatine Kinase MB 1.48 ng/mL (<2.37)
[2022-05-16 22:18] LABS: Procalcitonin 0.06 ng/mL (<0.5)
[2022-05-16] MEDS: AZITHROMYCIN 500 MG in DEXTROSE 5% IN WATER 250 ML 250 MG IV (22:37)
[2022-05-16 23:33] LABS: Ethanol (ETOH) < 10 mg/dL
[2022-05-17 00:04] VITALS: BMI 27.9
[2022-05-17] MEDS: ASPIRIN EC 81 MG TABLET PO ×2 (01:10→08:26)
[2022-05-17] MEDS: ACETAMINOPHEN 325 MG TABLET 650 MG PO ×3 (01:10→16:56)
[2022-05-17] MEDS: ATORVASTATIN 20 MG TABLET 40 MG PO ×2 (01:10→21:46)
[2022-05-17 01:11] VITALS: BP 160/82; PULSE 90
[2022-05-17] MEDS: lisinopriL 10 MG TABLET PO ×2 (01:11→08:26)
--- NOTE | 2022-05-17 05:27 | PC.NURSE ---
Pt is AxOx4, needs 1 person assistance with FWW and cooperative. Pt arrived to the unit from ER around mid-night. Pt's BP went down after came to unit and no fever. Pt denies pain. Pt is on RA and sats mid 90s. No skin issues. Pt is in droplet precaution due to Covid +. Lungs diminished but no cough. BG--210 in ER. No other changes. Continue monitor.
--- NOTE | 2022-05-17 08:13 | PC.NURSE ---
Addendum entered by Gabi Mayes R.N. 05/17/22 15:23: Patient worked with physical therapy and he will be one person assist with walker. He denies pain and is resting comfortably. Original Note: Patient voided 350 in the urinal. Blankets changed as patient spilled some. His lung sounds are diminished with crackles in lower lobes. He is resting on his r.side. Blood sugar 177, patient is resting now and breakfast will be served.
[2022-05-17] MEDS: ENOXAPARIN 40 MG/0.4 ML SYRINGE SUBCUT (08:26)
[2022-05-17] MEDS: INSULIN LISPRO 100 UNIT/ML 3ML VIAL SUBCUT ×3 (08:26→16:56)
[2022-05-17 08:35] VITALS: BP 146/70; PULSE 93; RESP 14; TEMP 37.3; O2SAT 94
[2022-05-17 10:48] LABS: Troponin I 0.029 ng/mL (0.01-0.034)
--- NOTE | 2022-05-17 11:45 | PM.HP.1 ---
History of Present Illness History of Present Illness Date Patient Seen: 05/17/22 Chief complaint: Multiple falls Narrative: Pt is an 86yo man with pulmonary fibrosis on intermittent oxygen at home, DM Type 2, hyperlipidemia, h/o CVA and prostate cancer, who presented with acute weakness. The pt reports that yesterday he had four different falls at home. He felt that he wasn't able to stand with any strength in his legs. He states that gradually over the last year he has been feeling slightly more weak, but this was an acute change. For me this morning the pt denies any lightheadedness, however he told the ER physician last night that he was lightheaded on two occasions after urinating. He denies any chest pain, LE edema, abdominal pain, dysuria. He does report SOB, but states this is chronic from his pulmonary fibrosis and only minimally worse recently. He has a mild intermittent cough that is nonproductive. He denies any recent fevers or chills. He states that his appetite has been low for the past several months. He denies any recent melena or hematochezia. In the ED, lab work was largely unrevealing with normal WBC count, cardiac work-up, and procalcitonin. He did test positive for COVID, and CXR showed a likely left lower lobe pneumonia. Patient History Medical History CVA (cerebral vascular accident) Diabetes H/O prostate cancer Surgical History (Updated 11/04/17 @ 06:09 by Rakesh Figueroa MD) H/O abdominal prostatectomy Family & Social History Social History: household members spouse Prior Living Arrangements House Safety & Behavioral: Feels Safe in Current Yes Environment Been Physically Hurt or No Threatened By a Person Tobacco & Substance use: Smoking Status Never smoker alcohol intake frequency 0-2 drinks per day Substance Use Type does not use Meds Home Medications and Allergies Home Medications Medication Instructions Recorded Confirmed Type metformin 500 mg tablet,extended 500 mg PO BID ##0 03/25/17 History release 24 hr (Glucophage XR) aspirin 81 mg tablet,delayed 81 mg PO QDAY #30 tabs 03/26/17 Rx release atorvastatin 20 mg tablet (Lipitor) 40 mg PO HS #30 tabs 03/26/17 05/17/22 Rx lisinopril 10 mg tablet 10 mg PO QDAY #30 tabs 03/26/17 05/17/22 Rx Allergies Allergy/AdvReac Type Severity Reaction Status Date / Time No Known Drug Allergies Allergy Verified 05/16/22 20:49 Exam Vital Signs (past 8 hours): - 05/17/22 08:35 Temperature 99.1 F Pulse Rate 93 H Respiratory Rate 14 Blood Pressure 146/70 H Pulse Oximetry 94 Oxygen Flow Rate 0 Oxygen Delivery Method Room Air Oxygen Flow Rate 0 Narrative Exam Narrative: GEN - alert, cooperative and no distress HEENT - normocephalic and atraumatic, moist mucus membranes NECK - no adenopathy, no JVD HEART - RRR, S1, S2 normal, no S3 or S4, no murmurs LUNGS - symmetric chest rise, no accessory muscles, mild crackles left base, no wheezing ABD - flat, nondistended, normal bowel sounds, soft, nontender and no hepatomegaly, splenomegaly or masses EXT - no cyanosis, clubbing or edema SKIN - no rashes or suspicious lesions Objective Labs Result Diagrams: 05/16/22 21:39 05/16/22 21:39 Labs: Laboratory Results - last 24 hr 05/16/22 05/16/22 05/16/22 20:34 21:39 21:39 WBC 10.2 RBC 4.09 L Hgb 13.2 L Hct 38.7 L MCV 94.6 MCH 32.2 MCHC 34.1 RDW 13.2 Plt Count 163 Neut % (Auto) 83.3 H Lymph % (Auto) 8.6 L [place] % (Auto) 7.5 Eos % (Auto) 0.3 L Baso % (Auto) 0.3 Neut # (Auto) 8500 H Lymph # (Auto) 900 L [place] # (Auto) 800 Eos # (Auto) 0 Baso # (Auto) 0 Sodium 138 Potassium 4.3 Chloride 101 Carbon Dioxide 27 BUN 14 Creatinine 1.11 Estimated GFR > 60 BUN/Creatinine Ratio 12.6 Glucose 221 H Lactate Calcium 9.0 Magnesium Total Bilirubin 1.1 AST 23 ALT 24 Alkaline Phosphatase 75 Total Creatine Kinase CK-MB (CK-2) CK-MB (CK-2) Rel Index Troponin I Total Protein 7.2 Albumin 4.1 Globulin 3.1 Albumin/Globulin Ratio 1.3 Lipase Procalcitonin Ethyl Alcohol SARS-CoV-2 (PCR) Positive H Influenza A (RT-PCR) Flu a negative Influenza B (RT-PCR) Flu b negative RSV (PCR) Negative 05/16/22 05/16/22 05/17/22 21:39 21:39 10:20 WBC RBC Hgb Hct MCV MCH MCHC RDW Plt Count Neut % (Auto) Lymph % (Auto) [place] % (Auto) Eos % (Auto) Baso % (Auto) Neut # (Auto) Lymph # (Auto) [place] # (Auto) Eos # (Auto) Baso # (Auto) Sodium Potassium Chloride Carbon Dioxide BUN Creatinine Estimated GFR BUN/Creatinine Ratio Glucose Lactate 1.5 Calcium Magnesium 1.6 Total Bilirubin AST ALT Alkaline Phosphatase Total Creatine Kinase 140 CK-MB (CK-2) 1.48 CK-MB (CK-2) Rel Index 1.1 L Troponin I 0.037 H 0.029 Total Protein Albumin Globulin Albumin/Globulin Ratio Lipase 21 L Procalcitonin 0.06 Ethyl Alcohol < 10 SARS-CoV-2 (PCR) Influenza A (RT-PCR) Influenza B (RT-PCR) RSV (PCR) Assessment & Plan Assessment & Plan narrative: Pt is an 86yo man with pulmonary fibrosis on intermittent oxygen at home, DM Type 2, HTN, hyperlipidemia, h/o CVA and prostate cancer, who presented with acute weakness. Found to be COVID positive, with CXR concerning for bacterial pneumonia as well. 1) Acute weakness: Most likely due to pneumonia and COVID - U/A still pending - PT/OT consulted - Hopeful can regain enough strength for d/c home 2) COVID: Stable on room air - Continue supportive care - No indication for additional treatments at this time 3) Community-acquired pneumonia: Evidence on CXR, although no elevation of WBC count or procalcitonin. - Will continue presumptive treatment with Ceftriaxone and Azithromycin, initiated in the ED 4) HTN: - Continue home Lisinopril 5) DM Type 2: - ACHS blood sugar checks - Hold metformin for now - Short acting insulin coverage FEN: Carb controlled diet Code: Full DVT ppx: Lovenox Dispo: Pt not out of bed yet this morning. Will await PT/OT assessment. Likely stable for d/c tomorrow. Time Spent With Patient Critical Care time: I spent a total of [] minutes of critical care time on this patient's care today; this time is exclusive of procedural time. Quality VTE Deep Vein Thrombosis/Pulmonary Embolism Present on Admission: No
[2022-05-17 12:24] VITALS: TEMP 37.3
--- NOTE | 2022-05-17 14:01 | CM.DANOTE ---
Addendum entered by NICK Sierra 05/17/22 15:34: ADD: Per PT, recommending home with 01/12 assist and HH and FWW. Pt checking with spouse to see if they want to buy a walker/get loaner or have one issued to him from the hospital. SW made [facility] referral based on Vendor Calendar and faxed initial clinicals to review and F2F completed but not scanned/faxed yet. Plan: SW to follow for update to spouse regarding 01/12 recommendation as she had been considering staying separate from pt due to COVID and the new [facility] referral made. BF Original Note: Patient is an 86 yo male who was admitted on 05/16/22 for GLF. Pt has MCR and [employer] OUT [employer] REG for insurance and his PCP is Dr. Jeff Mcclelland. EMR was reviewed. Per MD, pt admitted with COVID+ pneumonia and not yet medically stable to d/c today. PT/OT ordered and pending. SW attempted to call into pt room due to COVID precautions and no answer and SW called pt's spouse Shruthi and explained role and she confirms that they live in [place] and both are very active and independent at baseline and have been for 62 years. Spouse states their closest family is in [place]. Pt has no hx of HH or SNF and does not use DME to ambulate and still drives. Pt and spouse very alert and oriented and spouse states that she is not having any COVID symptoms herself and is concerned with getting COVID as she has some risk factors and discussed options to reduce her risk of contracted COVID and spouse may even stay in a hotel when pt discharged if he is safe for home when stable. Spouse states they would be agreeable with HH at d/c if needed and SW provided the HH Choice list and no preference. SW to follow for PT eval and recommendations today. Spouse hopeful that pt will remain in the hospital a few days and SW discussed medical need to meet criteria and she acknowledged understanding and still hopeful pt may not d/c until Mon (not tomorrow but next day). Plan: SW to follow closely for PT eval and recommendations to r/o HH and confirm pt safe for d/c home at discharge. NICK Sierra Discharge Planning/Care Management CM Discharge Assessment Start: 05/17/22 14:00 Freq: Status: Active Protocol: Document 05/17/22 14:00 BF (Rec: 05/17/22 14:01 BF [id number]) Discharge Planning Assessment Assigned Route Carrier NICK Campos DPOA/Assigned Designee Name spouse Shruthi Contact Information [phone] Advance Directives? Yes Advance Directives on File No History Provided By Patient,Significant Other, Medical Record Has Patient been admitted in last 30 No days? Prior Living Arrangements House Household Members spouse Type of transporation used prior to Drives own vehicle admit Independent with ADL's Yes Is patient alert and oriented? Yes Needs Assistance With Meal Prep Caregiver for Another No Patient/Family Preference Home with Home Health Comment Pending PT eval and recommendations, r/o HH Barriers to Discharge Yes Comment COVID+ Discharge Plan Home Transportation Arrangement spouse available to transport at d/c Additional Comment r/o HH pending PT eval Review Status In Process Please Provide Date Initial DC 05/17/22 Assessment Was Performed Next Review Type Continued Stay Review
--- NOTE | 2022-05-17 14:05 | PT.IIE ---
Surgical History (Last Updated 11/04/17 @ 06:09 by Rakesh Figueroa MD) H/O abdominal prostatectomy Medical History (Last Reviewed 05/17/22 @ 02:05 by Jonnathan Martell DO) CVA (cerebral vascular accident) Diabetes H/O prostate cancer Physical Therapy Inpatient Evaluation/Re-Eval M1 PT/OT-IP Prior Functional Status Start: 05/17/22 15:42 Freq: NEEDED Status: Active Protocol: Document 05/17/22 14:05 AB (Rec: 05/17/22 15:55 AB [id number]) Medical Review Prior Functional Status Medical History Reviewed Yes Communication able to make needs known Mobility and Gait pt stated that he is independent with all mobilities and ambulation without AD but uses his walking sticks when he walks the dog Social History Household Members spouse Living Arrangements House Number of Floors (Floors) Two Floors Number of Stairs To Enter/Railing? pt stays on the main level of the house no steps to enter Home Environment Standard Height Toilet,Walk in Shower M2 PT-IP Current Condition Start: 05/17/22 15:42 Freq: NEEDED Status: Active Protocol: Document 05/17/22 14:05 AB (Rec: 05/17/22 15:55 AB [id number]) Physical Therapy Current Condition Current Condition Evaluation Date 05/17/22 Treatment Diagnosis Covid PNA; difficulty in walking Onset Date 05/16/22 M3 PT-IP Subjective Start: 05/17/22 15:42 Freq: NEEDED Status: Active Protocol: Document 05/17/22 14:05 AB (Rec: 05/17/22 15:55 AB [email or web address]) Subjective Physical Therapy Visit Type Type Initial Evaluation Visit Start Time 14:05 Visit Stop Time 15:00 Total Visit Minutes 55 Number of CORE CLEANER Visits 0 Physical Therapy Visit Comments Patient Comments agreeable to do PT M4 PT-IP Mobility and Gait Start: 05/17/22 15:42 Freq: NEEDED Status: Active Protocol: Document 05/17/22 14:05 AB (Rec: 05/17/22 15:55 AB [email or web address]) PT-Bed Mobility Assessment Supine to Sit Supine to Sit Standby Assistance PT-Transfer Assessment Sit to and From Stand Sit to and from Stand Minimal Assistance,1 Person Assistance,Use of Upper Extremities Equipment Transfer Assistive Device Front Wheeled Walker Orthotic/Prosthetic Devices or Brace: No Transfers Transfer Destination Chair Transfer Technique ambulated Transfer Ability Level of Assist Minimal Assistance,1 Person Assistance,Use of Upper Extremities Comments Mobility Comments BP in supine: 110/58. pt completed supine to sit SBA. able to sit on EOB CGA. pt tends to lose sitting balance posteriorly but cued to correct and able to complete. BP in sittin/55. pt completed sit to stand min A and cues and ambulated ~ 12 ft using FWW min A and sat on chair. presents with unsteady shuffling gait, decrease step length BP: 104/69. O2 sat 97% . pt rested. agreed to walk again. sit to stand min A from chair and ambulated in room using FWW min A ~ 40 ft. pt agreed to stay up on the chair. positioned pt on the chair with call light and table placed within reach. informed pt regarding use of FWW at this due to unsteadiness/weakness and pt agreed. informed to let his spouse know that he needs a FWW and pt understood. informed comp field case manager regarding pt's mobility and FWW use. Gait Assessment Gait Gait Assistance Required: Minimum Assistance,1 Person Assist Distance (Feet) 40 Able to Maintain Weight Bearing Status Yes During Gait Assistive Devices Assistive Device Gait Belt,Front Wheeled Walker Orthotic/Prosthetic Devices or Brace: No Gait Deviations General Gait Pattern Decreased Stride Length, Decreased Feet Clearance,Step- to Gait Factors Limiting Gait Function Factors Limiting Gait Function Decreased Activity Tolerance, Decreased Strength,Limited Range of Motion,Poor Balance PT-Balance Assessment Sitting Balance and Reactions Static Sitting Balance Ability Good Dynamic Sitting Balance Ability Fair Standing Balance and Reactions Static Standing Balance Ability Fair Dynamic Standing Balance Ability Fair Device Used FWW M5 PT-IP Objective Assessments Start: 05/17/22 15:42 Freq: NEEDED Status: Active Protocol: Document 05/17/22 14:05 AB (Rec: 05/17/22 15:55 AB [email or web address]) Orientation Orientation/Cognition Level of Alertness Alert Orientation Name,Place,Situation Language Function Ability No Deficits Noted Safety Awareness Decreased Safety Awareness Gross Range of Motion Lower Extremity ROM Assessment Within Functional Limits Strength Lower Extremity Strength Hip 4-/5 Knee 4-/5 Muscle Tone Muscle Tone WNL Yes M6 PT-IP Treatment Start: 05/17/22 15:42 Freq: NEEDED Status: Active Protocol: Document 05/17/22 14:05 AB (Rec: 05/17/22 15:55 AB [email or web address]) Physical Therapy Treatment Education Education Provided Safety M7 PT-IP Assessment and Plan Start: 05/17/22 15:42 Freq: NEEDED Status: Active Protocol: Document 05/17/22 14:05 AB (Rec: 05/17/22 15:55 AB [email or web address]) PT Summary Assessment and Plan Potential Rehabilitation Potential Fair Status of Condition at Evaluation Evolving Summary Impairments ROM,Strength,Balance, Coordination,Sensation, Cognition,Bed Mobility, Transfers,Gait,Activity Tolerance Assessment Summary pt requiring min A with mobility using FWW but with decrease activity tolerance affecting independence. pt will assistance at home and stated that his spouse will be able to assist him. will continue to assess progress. pt will benefit from HHPT. Goals Bed Mobility Goal Independent Transfer Goal Independent,Front Wheeled Walker Gait Goal Independent,Front Wheel Walker Gait Distance 200 Other Goals improve transfers and ambulation without AD 200 ft SBA Days to Meet Goals 10 Frequency of Treatment Frequency Of Treatment Once a Day Treatment Plan Physical Therapy Treatment Plan Bed Mobility Training,Transfer Training,Gait Training, Therapeutic Exercise,Balance Retraining,Discharge Planning, Neuromuscular Re-ed, Coordination Retraining Precautions Other Precautions Covid Recommendations To Nursing Amount of Assist Needed 1 Person Assist Discharge Recommendations PT Discharge Recommendations Home with 01/12 Assist Available,Home Health Equipment Needed for Home Before FWW Discharge Transportation Needs at Discharge Private Vehicle
[2022-05-17 15:30] VITALS: BP 121/66; PULSE 74; RESP 16; TEMP 36.6; O2SAT 95
[2022-05-17] MEDS: cefTRIAXone 1,000 MG in SODIUM CHLORIDE 0.9% 100 ML 200 MG IV (21:46)
[2022-05-17] MEDS: AZITHROMYCIN 500 MG in DEXTROSE 5% IN WATER 250 ML 250 MG IV (23:02)
[2022-05-17 23:30] LABS: Appearance Urine UA CLEAR; Bilirubin Urine UA NEGATIVE (NEGATIVE); Color Urine UA YELLOW; Glucose Urine UA TRACE g/dL (Negative); Ketones Urine UA NEGATIVE (NEGATIVE); Leukocyte Esterase Urine UA NEGATIVE (NEGATIVE); Nitrite Urine UA NEGATIVE (Negative); Occult Blood Urine UA NEGATIVE (Negative); Protein Urine UA 1+ (Negative); Specific Gravity Urine UA 1.015 (1.000-1.035); Urobilinogen Urine UA 0.2 E.U./dL (0.2); pH Urine UA 5.5 (4.5-8.0)
[2022-05-17 23:50] LABS: Bacteria Urine None Seen; Mucus Urine 1+ (Negative); RBC Urine None Seen (0-5/HPF); WBC Urine 0-1/HPF (0-5/HPF)
[2022-05-18] VITALS: BP 156/92; PULSE 86; RESP 18; TEMP 37.1; O2SAT 95
[2022-05-18] MEDS: ACETAMINOPHEN 325 MG TABLET 650 MG PO ×2 (00:45→05:17)
[2022-05-18 08:00] VITALS: BP 134/34; PULSE 69; RESP 20; TEMP 36.1; O2SAT 96
--- NOTE | 2022-05-18 09:10 | CM.DPC ---
Addendum entered by Dianne Be R.N. 05/18/22 10:41: Called [facility], spoke to Gwen, and let her know that patient is discharging home today. Gwen indicated, there is no one in intake today, but will follow up tomorrow. Faxing over DC Summary, which is completed, face to face, and orders. Referral was initially sent. Original Note: DCP Cont: Dr. Moser came by and indicated that patient should be discharging home today. [facility] referral has been sent, went ahead and added orders. Will fax once DC Summary is completed, orders, face to face, and DC Summary. RN and P.T. have been ordered. P: Patient should be discharging home today. Will fax over DC Summary, orders, and face to face to [facility], and will follow up with phone call. Dianne Be RN/Radiation Officer
--- NOTE | 2022-05-18 09:29 | P.DS_ITS ---
History of Present Illness History of Present Illness Date Patient Seen: 05/18/22 Chief complaint: Multiple falls Narrative: Pt is an 86yo man with pulmonary fibrosis on intermittent oxygen at home, DM Type 2, hyperlipidemia, h/o CVA and prostate cancer, who presented with acute weakness. The pt reports that yesterday he had four different falls at home. He felt that he wasn't able to stand with any strength in his legs. He states that gradually over the last year he has been feeling slightly more weak, but this was an acute change. For me this morning the pt denies any lighthea dedness, however he told the ER physician last night that he was lightheaded on two occasions after urinating. He denies any chest pain, LE edema, abdominal pain, dysuria. He does report SOB, but states this is chronic from his pulmonary fibrosis and only minimally worse recently. He has a mild i ntermittent cough that is nonproductive. He denies any recent fevers or chills. He states that his appetite has been low for the past several months. He denies any recent melena or hematochezia. In the ED, lab work was largely unrevealing with normal WBC count, cardiac work- up, and procalcitonin. He did test positive for COVID, and CXR showed a likely left lower lobe pneumonia. Discharge Providers Provider Date of admission: 05/16/22 22:48 Discharge Date: 05/18/22 Primary care physician: Jeff Mcclelland MD Consults: 05/17/22 11:32 Consult to Occupational Therapy Evaluate & Treat Comment: Physician Instructions: Evaluate and treat Consult to Physical Therapy Evaluate & Treat Comment: Physician Instructions: Evaluate and Treat 05/18/22 08:55 Consult to Home Health Routine Comment: Reason For Exam: Home Health RN, P.T. Discharge provider: Marquita Moser MD Summary Hospital Course Discharge Diagnosis: COVID Community-acquired pneumonia Acute weakness Pulmonary fibrosis HTN DM Type 2 Hospital Course: The pt presented with acute weakness, found to have COVID and pneumonia. He did not require oxygen during his hospitalization. He was started on IV antibiotics which were continued throughout his stay. He had significant improvement in his weakness. PT was consulted, and recommended home health. He will discharge home today on oral antibiotics. He is stable with reassuring vital signs. He will follow up with his primary care physician within the week. The patient feels ready to discharge. Status at Discharge Cognitive/behavioral status at discharge: oriented Functional status at discharge: uses cane/walker Overall status at discharge: patient is progressing back to baseline Exam Vital Signs (past 8 hours): - 05/18/22 08:00 Temperature 97.0 F L Pulse Rate 69 Respiratory Rate 20 Blood Pressure 134/34 L Pulse Oximetry 96 Oxygen Flow Rate 0 Oxygen Delivery Method Room Air Oxygen Flow Rate 0 Objective Labs Result Diagrams: 05/16/22 21:39 05/16/22 21:39 Labs: Laboratory Results - last 24 hr 05/17/22 05/17/22 10:20 23:00 Troponin I 0.029 Urine Color Yellow Urine Appearance Clear Urine pH 5.5 Ur Specific [place] 1.015 Urine Protein 1+ H Urine Glucose (UA) Trace H Urine Ketones Negative Urine Occult Blood Negative Urine Nitrate Negative Urine Bilirubin Negative Urine Urobilinogen 0.2 Ur Leukocyte Esterase Negative Urine RBC None seen Urine WBC 0-1/hpf Urine Bacteria None seen Urine Mucus 1+ H Micro UA Comment * [facility] Medical History CVA (cerebral vascular accident) Diabetes H/O prostate cancer Surgical History (Updated 11/04/17 @ 06:09 by Rakesh Figueroa MD) H/O abdominal prostatectomy Social History household members: spouse Smoking Status: Never smoker Discharge Plan Discharge Plan Patient Disposition: Home Health Service Discharge orders & Medications Prescriptions: New azithromycin 250 mg tablet 500 mg PO DAILY Qty: 4 0RF Rx Instructions: start on day 2 of therapy amoxicillin-pot clavulanate 875-125 mg tablet 1 tab PO BID Qty: 10 0RF Continued metformin [Glucophage XR] 500 MG tablet extended release 24 hr 500 mg PO BID Qty: 0 atorvastatin [Lipitor] 20 MG tablet 40 mg PO HS Qty: 30 0RF aspirin 81 MG tablet,delayed release (DR/EC) 81 mg PO QDAY Qty: 30 0RF lisinopril 10 MG tablet 10 mg PO QDAY Qty: 30 0RF Follow up/Referrals: Jeff Mcclelland MD [Primary Care Provider] - 1 Week Diet/Activity/Treatments Diet: Diet as Tolerated and Regular Skin/Wound/Dressing Care Report to your healthcare provider any signs of infection, such as:: chills, fever Visit Report/Discharge Packet Instructions: DI for Pneumonia -- Adult Stand Alone Forms: Patient Portal/API, Stroke Signs & Symptoms Discharge Data Primary Care Provider: Jeff Mcclelland VTE Deep Vein Thrombosis/Pulmonary Embolism Present on Admission: No
== END 2022-05-18 11:04 | disposition home or self-care (01) | DRG 177 ==
LOC: ED 22:47 → AC 22:49
PROVIDERS: Admitting Provider Family Medicine; Emergency Provider Emergency Medicine; PCP Family Medicine; Referring Provider Emergency Medicine; Visit Provider Family Medicine
DX: U07.1 COVID-19 (principal); J18.9 Pneumonia, unspecified organism; I10 Essential (primary) hypertension; E11.9 Type 2 diabetes mellitus without complications; J84.10 Pulmonary fibrosis, unspecified; Z86.73 Personal history of transient ischemic attack (TIA), and cerebral infarction without residual deficits; Z79.4 Long term (current) use of insulin
CPT/HCPCS: 0241U; 36415; 71045; 80053; 80320; 81001; 82550; 82553; 82962; 83605; 83690; 83735; 84145; 84484; 85025; 87040; 87086; 93005; 93010; 96365; 96375; 97116; 97162; 97530; 99222; 99238; 99284; J0696; J1650; J1815

== ENCOUNTER 2022-10-25 16:37 | Emergency (ER) | payer MEDICARE, BC, SELFPAY ==
[2022-10-25 16:42] VITALS: BP 161/77; PULSE 89; RESP 16; TEMP 36.1; O2SAT 98; BMI 27.3
--- NOTE | 2022-10-25 17:49 | ED_ITS ---
HPI - Ear Problem General Chief complaint: Ear Stated complaint: Thinks ruptured ear drum Time Seen by Provider: 10/25/22 17:41 Source: patient Mode of arrival: Ambulatory Limitations: no limitations History of Present Illness HPI Narrative: This is an 87-year-old male with history of hypertension, dyslipidemia, prior prostate cancer and TIA, pulmonary fibrosis with home O2 at night with complaint of left ear pain. Patient states 4 days of pain in the left ear, increasing today with sharp pains intermittently. Patient's thought that there was some blood coming out of his ear but did not see or no for sure it was there. Patient did not appreciate any change. He states hearing has been somewhat decreased. Feels full to him. He states he does irrigate his ears but does not put any objects inside of his ear such as Q-tips or other things to clean it. He has not appreciate any pain outside the ear no redness, swelling or other changes. No fevers, no headaches, no sore throat. No changes on the opposite side. Patient denies any nausea or vomiting. Denies any dizziness or other changes. No recent upper respiratory symptoms or nasal congestion. Patient states he does not wear hearing aids. No known drug allergies. Related Data Previous Rx's Medication Instructions Recorded aspirin 81 mg tablet,delayed 81 mg PO QDAY #30 tabs 03/26/17 release atorvastatin 20 mg tablet (Lipitor) 40 mg PO HS #30 tabs 03/26/17 lisinopril 10 mg tablet 10 mg PO QDAY #30 tabs 03/26/17 amoxicillin 500 mg tablet 500 mg PO TID #30 tabs 10/25/22 Allergies Allergy/AdvReac Type Severity Reaction Status Date / Time No Known Drug Allergies Allergy Verified 10/25/22 16:42 Review of Systems Review of Systems ROS Unobtainable: All systems reviewed & are unremarkable except as noted in HPI and below Patient History Medical History CVA (cerebral vascular accident) Diabetes H/O prostate cancer Surgical History H/O abdominal prostatectomy Social History household members: spouse Smoking Status: Never smoker Smoking Status: Never smoker alcohol intake frequency: 0-2 drinks per day Substance Use Type: does not use Exam Narrative Exam Narrative: GEN: well nourished, well appearing male, alert and oriented x 3, patient appears to be in mild distress. HEENT: Atraumatic, pupils are equal round reactive to light, extraocular movements are intact, nares are clear, left TM has bulge with fluid some erythema and a small amount of hemorrhage at the 11 o'clock position, no perforation, no drainage, the canal is clear without any cerumen, canal does not have any erythema or swelling no tenderness to the tragus, pinnae or outer ear with normal external exam, there is no conjunctival pallor. Throat is clear without any exudates, erythema, tonsillar enlargement or uvular deviation MSCL: full range of motion, normal gait NEURO:CN 2-12 intact, sensation normal. SKIN: No rash, erythema or other skin changes. Initial Vital Signs Initial Vital Signs: Vital Signs Temperature 97.0 F L 10/25/22 16:42 Pulse Rate 89 10/25/22 16:42 Respiratory Rate 16 10/25/22 16:42 Blood Pressure 161/77 H 10/25/22 16:42 Pulse Oximetry 98 10/25/22 16:42 Oxygen Delivery Method Room Air 10/25/22 16:42 Course Orders Ordered: Discontinued Medications Amoxicillin (Amoxicillin 250 Mg Capsule) 500 mg PO NOW ONE Stop: 10/25/22 17:50 Last Admin: 10/25/22 17:56 Dose: 500 mg Documented By: CAT Vital Signs Vital signs: Vital Signs - 8 hr 10/25/22 16:42 10/25/22 17:57 Temperature 97.0 F L Pulse Rate 89 82 Respiratory Rate 16 18 Blood Pressure 161/77 H 134/75 Pulse Oximetry 98 97 Oxygen Delivery Method Room Air Room Air Medical Decision Making [facility] Narrative Medical decision making narrative: This is an 87-year-old male with 4 days of left ear pain which has been increasing, patient does not have any external changes on exam tympanic membrane is quite bulge, with fluid erythema and a small amount of hemorrhage at the top, no perforation appreciated patient has noticed some decreased hearing but is able to hear. No traumatic injury or objects placed inside the ear. Patient increasing pain in his felt appropriate for treatment with oral antibiotics. Also Zyrtec or Claritin or similar antihistamine to help with and eustachian tube dysfunction. Discussed with patient to avoid Sudafed or similar medications because of history of hypertension. Discussed return precautions, signs and symptoms to watch for and reasons to return. Discharge Plan Departure Patient Disposition: Home Clinical Impression: Otitis media Qualifiers: Chronicity: acute Laterality: left Spontaneous tympanic membrane rupture: without spontaneous rupture Instructions: DI for Otitis Media (Middle Ear Infection)-Child Activity Restrictions/Additional Instructions: Your and your exam today shows bulge and fluid of the tympanic membrane as well as some redness. I would recommend taking loratadine or Zyrtec once daily [id number] for the next week or until symptoms resolve. Take antibiotics as prescribed until gone. [facility] I would expect your symptoms to start improving within 24-48 hours with antibiotics, if symptoms are tolerable but not resolving please follow-up with primary care for recheck. Please return for rapidly worsening pain, new redness or swelling of the ear, face, throat or neck, loss of hearing, severe headaches, fevers, bloody drainage or other new or concerning changes. Prescriptions: New amoxicillin 500 mg tablet 500 mg PO TID Qty: 30 0RF No Action atorvastatin [Lipitor] 20 MG tablet 40 mg PO HS Qty: 30 0RF aspirin 81 MG tablet,delayed release (DR/EC) 81 mg PO QDAY Qty: 30 0RF lisinopril 10 MG tablet 10 mg PO QDAY Qty: 30 0RF Referrals: Jeff Mcclelland MD [Primary Care Provider] - Stand Alone Forms: Patient Portal/API
[2022-10-25] MEDS: AMOXICILLIN 250 MG CAPSULE 500 MG PO (17:56)
[2022-10-25 17:57] VITALS: BP 134/75; PULSE 82; RESP 18; O2SAT 97
== END 2022-10-25 18:01 | disposition home or self-care (01) ==
PROVIDERS: Emergency Provider Emergency Medicine; PCP Family Medicine
DX: H66.92 Otitis media, unspecified, left ear (principal)
CPT/HCPCS: 99283

== ENCOUNTER 2022-10-29 14:25 | Emergency (ER) | payer MEDICARE, BC, SELFPAY ==
[2022-10-29 14:34] VITALS: BP 173/79; PULSE 86; RESP 20; TEMP 37; O2SAT 97; BMI 27.3
--- NOTE | 2022-10-29 15:41 | ED_ITS ---
HPI - Ear Problem <Jacob Babcock PA-C - Last Filed: 10/29/22 19:45> General Chief complaint: Ear Stated complaint: L ear pain, headache Time Seen by Provider: 10/29/22 14:54 Source: patient Mode of arrival: Ambulatory History of Present Illness HPI Narrative: This is a 87-year-old male presents to the emergency department due to continued left ear pain for the last week. States that he was seen in the ER about 4 days ago was prescribed antibiotics for course of 10 days. He was 4 days into his 10 day course. He states that the pain has continued but denies any new symptoms such as fevers nausea, vomiting, dizziness, changes in hearing, or any other concerning signs or symptoms. Denies any discharge from the ear. Related Data Previous Rx's Medication Instructions Recorded aspirin 81 mg tablet,delayed 81 mg PO QDAY #30 tabs 03/26/17 release atorvastatin 20 mg tablet (Lipitor) 40 mg PO HS #30 tabs 03/26/17 lisinopril 10 mg tablet 10 mg PO QDAY #30 tabs 03/26/17 amoxicillin 500 mg tablet 500 mg PO TID #30 tabs 10/25/22 Allergies Allergy/AdvReac Type Severity Reaction Status Date / Time No Known Drug Allergies Allergy Verified 10/25/22 16:42 Review of Systems <Jacob Babcock PA-C - Last Filed: 10/29/22 19:45> Review of Systems Narrative: GENERAL: Denies chills, fatigue, malaise, fever, sweats. HEENT: Reports left ear pain, denies sinus pain, sore throat, difficulty swallowing, dizziness. RESPIRATORY: Denies dyspnea, cough, wheezing, hemoptysis, sputum. CARDIOVASCULAR: Denies chest pain, palpitations, orthopnea, edema, GASTROINTESTINAL: Denies nausea, vomiting, abdominal pain, diarrhea, constipation, melena. : Denies dysuria, frequency, incontinence, hematuria, urinary retention. MUSCULOSKELETAL: denies weakness, joint pain, or bony pain SKIN: Denies rash, skin lesions, or other NEUROLOGIC: Denies weakness, headache, numbness, change in speech, confusion, seizures, incoordination. PSYCHIATRIC: No concerning psychosocial issues. 12 point review of systems is negative except for those stated above Patient History <BOB Whiting Last Filed: 10/29/22 19:45> Medical History CVA (cerebral vascular accident) Diabetes H/O prostate cancer Surgical History H/O abdominal prostatectomy Social History household members: spouse Smoking Status: Never smoker Smoking Status: Never smoker alcohol intake frequency: 0-2 drinks per day Substance Use Type: does not use Exam <Jacob Babcock PA-C - Last Filed: 10/29/22 19:45> Narrative Exam Narrative: GENERAL: Well-developed patient, in mild distress. HEAD: Atraumatic. Normocephalic. EYES: Pupils equal round and reactive. Extraocular motions intact. No scleral icterus. No injection or drainage. ENT: Right TM unremarkable. Left TM showed some surrounding erythema but did show evidence of hemotympanum. No TM perforation. No evidence of any kind of otitis externa. No surrounding mastoid tenderness to palpation. NECK: Trachea midline. Non tender EXTREMITIES: No edema or joint tenderness. BACK: Nontender without deformity or crepitance. No flank tenderness. NEURO: AOx3. SKIN: No rash or erythema of visible areas Initial Vital Signs Initial Vital Signs: Vital Signs Temperature 98.6 F 10/29/22 14:34 Pulse Rate 86 10/29/22 14:34 Respiratory Rate 20 10/29/22 14:34 Blood Pressure 173/79 H 10/29/22 14:34 Pulse Oximetry 97 10/29/22 14:34 Oxygen Delivery Method Room Air 10/29/22 14:34 <Wojciech Joseph DO - Last Filed: 11/04/22 04:00> Initial Vital Signs Initial Vital Signs: Vital Signs Temperature 98.6 F 10/29/22 14:34 Pulse Rate 86 10/29/22 14:34 Respiratory Rate 20 10/29/22 14:34 Blood Pressure 173/79 H 10/29/22 14:34 Pulse Oximetry 97 10/29/22 14:34 Oxygen Delivery Method Room Air 10/29/22 14:34 Course <Jacob aBbcock PA-C - Last Filed: 10/29/22 19:45> Vital Signs Vital signs: Vital Signs - 8 hr 10/29/22 14:34 Temperature 98.6 F Pulse Rate 86 Respiratory Rate 20 Blood Pressure 173/79 H Pulse Oximetry 97 Oxygen Delivery Method Room Air <Wojciech Joseph DO - Last Filed: 11/04/22 04:00> Vital Signs Vital signs: Vital Signs - 8 hr 10/29/22 14:34 Temperature 98.6 F Pulse Rate 86 Respiratory Rate 20 Blood Pressure 173/79 H Pulse Oximetry 97 Oxygen Delivery Method Room Air Medical Decision Making <Jacob Babcock PA-C - Last Filed: 10/29/22 19:45> MDM Narrative Medical decision making narrative: MDM * differential diagnosis includes but not limited to otitis media, perforated TM, otitis externa, mastoiditis, acute barotrauma * Prior records reviewed: Patient was seen here 4 days ago with complaints of left ear pain. During the exam 4 days ago left TM was bulging with some erythema and a small amount of hemorrhage at the 11 o'clock position but without perforation or drainage no other remarkable findings. Patient was prescribed oral antibiotics as well as advised to take Zyrtec or Claritin to help with the eustachian tube dysfunction. Advised to avoid Sudafed due to history of hypertension. * Clinical Decision Rules/Scores evaluated: None * Independent discussions with: None ED Course: This is a 87-year-old male presents to the emergency department due to continued symptoms after be seeing in the ER 4 days ago due to ear pain. Patient does not report any new symptoms which is reports the continued ear pain causing him to return. On exam there was no evidence of any kind of TM perforation although it does appear that the hemorrhage that was noted on preop exam had increased in size. Recommended continuing with conservative management of this and no acute treatment needed. Did recommend that he continue the oral course of antibiotics that was prescribed previously and complete the course. Patient will follow up with his primary care provider for referral to ENT if his symptoms continue. Shared Decision Making: Discussed plan with patient who is comfortable with the plan. Social Considerations: None Disposition: Discharged to home Discharge Plan Departure Patient Disposition: Home Clinical Impression: Acute ear pain Activity Restrictions/Additional Instructions: Thank you for coming to the [facility] Emergency Department today. I would recommend continuing the antibiotics were prescribed previously. Also recommend you speak with your primary care provider for referral to ENT for possible ENT and [place] who will be able to see you sooner than the ENT in [facility]. They will be best people to evaluate if your pain continues. I hope you feel better soon. Prescriptions: No Action atorvastatin [Lipitor] 20 MG tablet 40 mg PO HS Qty: 30 0RF aspirin 81 MG tablet,delayed release (DR/EC) 81 mg PO QDAY Qty: 30 0RF lisinopril 10 MG tablet 10 mg PO QDAY Qty: 30 0RF amoxicillin 500 mg tablet 500 mg PO TID Qty: 30 0RF Referrals: Jeff Mcclelland MD [Primary Care Provider] - Stand Alone Forms: Patient Portal/API <Wojciech Joseph DO - Last Filed: 11/04/22 04:00> Cosign ED Attending Shellyature Attestation: I was immediately available in the department for consultation. Documentation has been reviewed. I agree with assessment and plan.
== END 2022-10-29 15:49 | disposition home or self-care (01) ==
PROVIDERS: Emergency Provider Physician Assistant Medical; PCP Family Medicine
DX: H92.02 Otalgia, left ear (principal)
CPT/HCPCS: 99281

== ENCOUNTER 2023-04-20 10:15 | Outpatient (RCR) | payer MEDICARE, BC, SELFPAY | END 2023-04-20 12:15 | LOC: PUL 10:15 | PROVIDERS: PCP Family Medicine; Referring Provider Internal Medicine; Visit Provider Internal Medicine | DX: J84.9 Interstitial pulmonary disease, unspecified (principal); R06.02 Shortness of breath | CPT/HCPCS: 94626; G0237; G0238 ==

== ENCOUNTER 2023-09-10 10:15 | Outpatient (RCR) | payer MEDICARE, BC, SELFPAY | END 2023-09-10 12:15 | LOC: PUL 10:15 | PROVIDERS: PCP Family Medicine; Referring Provider Internal Medicine; Visit Provider Internal Medicine | DX: J84.89 Other specified interstitial pulmonary diseases (principal) | CPT/HCPCS: G0237; G0238 ==